=== PATIENT | female | born 1980 | race Caucasian/White ===

== ENCOUNTER → 2020-05-21 | Outpatient (CLI) | payer OTHER ==
[~2020-05-21] MED LIST: CRESTOR40 MG PO; HYDR12.58 PO; LEVO75TA90 PO; METO25TA4 PO
== END ==
LOC: LAB 13:35
PROVIDERS: ATTEND Internal Medicine Gastroenterology
DX: Z01.812 Encounter for preprocedural laboratory examination (principal); Z20.828 Contact with and (suspected) exposure to other viral communicable diseases; Z83.71 Family history of colonic polyps
CPT/HCPCS: U0003-CS

== ENCOUNTER → 2020-05-24 | Day surgery (SDC) | payer OTHER ==
[~2020-05-24] MED LIST changes: +IV RINGERS,LACTATED 1000ML 1,000 ML IV SCH; +LIDOCAINE 2% PF 5 ML VIAL. ONE; +PROPOFOL 10 MG/ML (20ML) VIAL. IV ONE
[2020-05-24 11:27] VITALS: BP 112/74
--- NOTE | 2020-05-29 09:08 | PATHOLOGY ---
[facility] Accession Number: [id number] . 01 Material submitted: . sigmoid colon - SIGMOID POLYP . 01 Clinical history: . SCREENING, FAMILY HX CRC AND POLYPS . 02 Diagnosis: Large bowel, "sigmoid polyp", endoscopic biopsy: - Hyperplastic polyp; negative for dysplasia and malignancy. . (MLK:mml; 05/28/2020) QLM 05/28/2020 1700 Local . 02 Electronically signed: . Juanito Rojas MD, Pathologist NPI- [id number] . 01 Gross description: . Received in formalin labeled "[place], [place], sigmoid polyp" is a leyva-brown soft tissue fragment measuring 0.3 x 0.3 x 0.1 cm. The specimen is submitted entirely in A1. ([facility]; 05/24/2020) SY/[facility] 05/24/2020 1839 Local . 02 Pathologist provided ICD-10: K63.5 . 02 CPT . 722950 Specimen Comment: A courtesy copy of this report has been sent to [phone] Specimen Comment: Report sent to Performed at: [facility] [address], [place], [place] [id number] MD Onel Mendoza MD Phone: [phone] Performed at: [address] [id number] MD Evette Goldsmith MD Phone: [phone]
== END ==
LOC: EDUNIT# 10:30 → ENDOS 10:44
PROVIDERS: ATTEND Internal Medicine Gastroenterology
DX: Z12.11 Encounter for screening for malignant neoplasm of colon (principal); K63.5 Polyp of colon; K64.0 First degree hemorrhoids; I10 Essential (primary) hypertension; E11.9 Type 2 diabetes mellitus without complications; E78.00 Pure hypercholesterolemia, unspecified; F41.9 Anxiety disorder, unspecified; F32.9 Major depressive disorder, single episode, unspecified; I25.2 Old myocardial infarction; Z87.891 Personal history of nicotine dependence; Z79.899 Other long term (current) drug therapy; Z79.84 Long term (current) use of oral hypoglycemic drugs; Z83.71 Family history of colonic polyps; Z80.0 Family history of malignant neoplasm of digestive organs
CPT/HCPCS: 45380; 81025; 88305; J2704

== ENCOUNTER 2021-06-08 23:02 | Inpatient (IN) | payer BC, OTHER ==
[~2021-06-08] VITALS: Ht 167.6 cm; Wt 107.3 kg
[~2021-06-08 23:02] MED LIST changes: -IV RINGERS,LACTATED 1000ML 1,000 ML IV SCH; -LIDOCAINE 2% PF 5 ML VIAL. ONE; -PROPOFOL 10 MG/ML (20ML) VIAL. IV ONE
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
[2021-06-08] MEDS ORDERED: ASPIRIN 325 MG TABLET PO ONE (23:15)
[2021-06-08] MEDS ORDERED: ASPIRIN CHEWABLE 81 MG TABLET. PO ONE (23:15)
[2021-06-08] MEDS ORDERED: IV NORMAL SALINE 1000ML BAG 1,000 ML IV ONE (23:30)
[2021-06-08 23:32] LABS: BASO # 0.1 x10^3/uL (0.0-0.2); BASO % 1 % (0-3); EOS # 0.1 x10^3/uL (0.0-0.7); EOS % 1 % (0-3); HEMATOCRIT 45.4 % (36.0-47.0); HEMOGLOBIN 15.5 g/dL (12.0-15.5); LYMPH # 1.6 x10^3/uL (1.0-4.8); LYMPH % 14 % (24-48); MEAN CORPUSCULAR HEMOGLOBIN 31 pg (25-35); MEAN CORPUSCULAR HGB CONC 34 g/dL (31-37); MEAN CORPUSCULAR VOLUME 90 fL (79-100); MONO # 0.5 x10^3/uL (0.0-1.1); MONO % 4 % (0-9); NEUT # 9.1 x10^3/uL (1.8-7.7); NEUT % 80 % (31-73); PLATELET COUNT 281 x10^3/uL (140-400); RED BLOOD COUNT 5.05 x10^6/uL (3.50-5.40); RED CELL DISTRIBUTION WIDTH 14.3 % (11.5-14.5); WHITE BLOOD COUNT 11.4 x10^3/uL (4.0-11.0)
[2021-06-08 23:42] LABS: BILIRUBIN,URINE NEGATIVE (NEG); CLARITY,URINE CLEAR; COLOR,URINE YELLOW; NITRITE,URINE NEGATIVE (NEG); PH,URINE 6.5 (<5.0-8.0); PROTEIN,URINE NEGATIVE (NEG-TRACE)
[2021-06-08 23:43] LABS: CALCIUM 8.9 mg/dL (8.5-10.1); GFR 60.5; POTASSIUM 4.1 mmol/L (3.5-5.1)
[2021-06-08 23:49] LABS: BACTERIA,URINE FEW /HPF (0-FEW); RBC,URINE RARE /HPF (0-2)
[2021-06-08 23:49] LABS: ALBUMIN 3.9 g/dL (3.4-5.0); ALBUMIN/GLOBULIN RATIO 1.1 (1.0-1.7); MAGNESIUM 1.9 mg/dL (1.8-2.4); TOTAL BILIRUBIN 0.3 mg/dL (0.2-1.0); TOTAL PROTEIN 7.4 g/dL (6.4-8.2)
[2021-06-09] MEDS ORDERED: HEPARIN for IV BOLUS 10,000 UNIT/10 ML VIAL. IV ONE
--- NOTE | 2021-06-09 00:10 | RAD ---
XR CHEST 1V 06/08/2021 11:17 PM INDICATION: Chest pain COMPARISON: None available TECHNIQUE: Portable frontal view of the chest is provided. FINDINGS: The cardiomediastinal silhouette is within normal limits. Mild bibasilar interstitial changes are not ed. There are no significant pleural effusions. There is no pulmonary vascular congestion. No pneumothora x. No suspicious osseous abnormality. IMPRESSION: Moderate bibasilar interstitial changes are present. In the acute setting, this may reflect developin g interstitial pneumonitis infectious/inflammatory etiology versus acute interstitial edema. However, if chronic, findings could reflect chronic interstitial edema or interstitial fibrotic changes. Electronically signed by: Shell Skelton MD (06/09/2021 12:08 AM) BILL
[2021-06-09] MEDS ORDERED: CONTRAST GIVEN. MC PRN (00:15)
[2021-06-09] MEDS ORDERED: IOHEXOL 350 MG/ML 100 ML VIAL. IV ONE (00:15)
--- NOTE | 2021-06-09 00:29 | EKG ---
[facility] [address] [place] [address] Test Date: 2021-06-09 Test Time: 00:15:42 Pat Name: RADHA HERNANDEZ Department: Room: Gender: F [employer] Manager: : 1980 Requested By: DAHIANA DE JESUS Order Number: [id number] Reading MD: Nick Mcdonald Measurements Intervals [place] Rate: 69 P: 43 VT: 138 QRS: -34 QRSD: 98 T: 19 QT: 404 QTc: 434 Interpretive Statements SINUS RHYTHM LEFT ATRIAL ABNORMALITY ABNORMAL LEFT AXIS DEVIATION LEFT ANTERIOR FASCICULAR BLOCK INCOMPLETE RIGHT BUNDLE BRANCH BLOCK ABNORMAL ECG RI6.02 No previous ECG available for comparison Electronically Signed On 06-09-2021 12:40:10 CDT by Nick Mcdonald
--- NOTE | 2021-06-09 00:30 | EKG ---
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
--- NOTE | 2021-06-09 01:07 | RAD ---
PQRS Compliance Statement: One or more of the following individualized dose reduction techniques were utilized for this examinat ion: 1. Automated exposure control 2. Adjustment of the mA and/or kV according to patient size 3. Use of iterative reconstruction technique CTA CHEST_ABDOMEN_AND PELVIS 06/08/2021 12:12 AM Indication: Chest pain, history of dissection COMPARISON: None available. TECHNIQUE: Multiple axial CT images of the chest, abdomen and pelvis were obtained before and after i ntravenous administration of nonionic contrast. Coronal and sagittal reformats provided. Maximum inte nsity projection images are provided. FINDINGS: Thyroid gland is normal in appearance. There are no pathologically enlarged axillary, mediastinal or hilar lymph nodes. Heart size is within normal limits. Thoracic aorta is normal in course and caliber. Ascending thoracic aorta measures 3.6 cm. There is no aortic dissection. Coronary artery vascular calcifications are noted. There is no si gnificant pericardial effusion. Thoracic esophagus is normal in appearance. Anterior chest wall appea rs intact. There is a thin contrast channel identified along the central portion of the intraventricu lar septum. There is a 4 mm solid noncalcified pulmonary nodule in the subpleural lateral left lower lobe (series 5, image 63). There is bibasilar subsegmental atelectasis.. There are no pleural effusions, pulmonar y vascular congestion or pneumothorax. Lungs are clear without focal airspace consolidation. Central airways are clear. Liver, spleen, adrenal glands, pancreas and gallbladder are normal in appearance. The abdominal aorta is normal in course and caliber. There are no pathologically enlarged lymph nodes in the abdomen and pelvis. There is no abdominal free fluid. There is no free intraperitoneal air. No evidence for aort ic dissection. Small and large bowel are normal in caliber. There is no evidence for bowel obstruction. There are no pericolonic inflammatory changes. A normal, nondilated appendix is visualized without adjacent infla mmatory changes. There is a 2 mm nonobstructing calculus in inferior pole of the left kidney. The kid neys enhance symmetrically. There is no suspicious renal mass. There is no hydronephrosis. Subcentime ter cyst identified in the superior pole the right kidney. Urinary bladder is within normal limits gi yesika degree of distention. Uterus and adnexa are normal by CT. No suspicious osseous abnormality. No paraspinal soft tissue mass. IMPRESSION: No evidence for aortic dissection. 4 mm subpleural centimeter noncalcified pulmonary nodule in the lateral left lower lobe. Bandar vidal for incidentally detected pulmonary nodules suggests no routine follow-up for low risk jassi ents and optional CT at 12 months for high risk patients with solid noncalcified pulmonary nodules le ss than 6 mm in size. Bibasilar subsegmental atelectasis. There is a thin contrast channel identified on the interventricular septum (series 5, image 62). This could be volume averaging artifact with adjacent right ventricle. However, correlation with echo cou ld be of benefit for further evaluation as VSD could have similar appearance. Electronically signed by: Shell Skelton MD (06/09/2021 1:05 AM) BILL
[2021-06-09] MEDS: HEPARIN 25,000UTS/250ML PREMIX 250 ML IV PRN ×2 (01:08→15:39)
[2021-06-09] MEDS ORDERED: ONDANSETRON PF 4 MG/2 ML VIAL. IVP PRN (01:30)
[2021-06-09] MEDS ORDERED: fentaNYL PF VIAL 100 MCG/2 ML VIAL IVP PRN (01:30)
[2021-06-09 03:20] VITALS: BP 127/80
[2021-06-09] MEDS ORDERED: FLUO20CA16 PO (04:26)
[2021-06-09] MEDS ORDERED: LORA0.5T96 PO (04:26)
--- NOTE | 2021-06-09 04:27 | NUR ---
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 Valuables were checked and documented. Call light in reach, pt continue on heparin gtt as per order, will cont to monitor pt status and safety. pmrn
[2021-06-09 07:30] VITALS: BP 114/79
--- NOTE | 2021-06-09 08:52 | PDOC1 ---
History and Physical Date of Admission Date of Admission DATE: 06/09/21 TIME: 08:49 Source Source: Chart review, Patient History of Present Illness History of Present Illness MS. Adler is a 41 year old female admit for ER overnight, for acute chest pain, at a haunted house then had chest pain in the car, center of chest and radiated down both arms. She had numbness and tingling in both arms. prior coronary artery dissection 6 months ago had similar pain, she took ibuprofen before coming to the hospital, aspirin given, heparin gtt started for troponi elevation Past Medical History Cardiovascular: CAD, HTN GI: No pertinent hx Heme/Onc: No pertinent hx Hepatobiliary: No pertinent hx Psych: Anxiety, Depression Musculoskeletal: low back pain ENT: No pertinent hx Renal/: No pertinent hx Endocrine: No pertinent hx Past Surgical History Past Surgical History: Other (stents ) Family History Family History: Heart Disease Social History Smoke: Quit ALCOHOL: rare Drugs: None Current Problem List Problem List Problems Medical Problems: (1) NSTEMI (non-ST elevated myocardial infarction) Status: Acute Current Medications Current Medications Current Medications Aspirin (Kayla Aspirin) 325 mg 1X ONCE PO ; Start 06/08/21 at 23:15; Stop 06/08/21 at 23:15; Status DC Aspirin (Aspirin Chewable) 243 mg 1X ONCE PO Last administered on 06/08/21at 23:59; Start 06/08/21 at 23:15; Stop 06/08/21 at 23:16; Status DC Lorazepam (Ativan Inj) 0.5 mg 1X ONCE IVP Last administered on 06/08/21at 23:59; Start 06/08/21 at 23:30; Stop 06/08/21 at 23:32; Status DC Sodium Chloride 1,000 ml @ 1,000 mls/hr 1X ONCE IV Last administered on 06/08/21at 23:59; Start 06/08/21 at 23:30; Stop 06/09/21 at 00:29; Status DC Heparin Sodium (Porcine) (Heparin Sodium) 4,000 unit 1X ONCE IV Last administered on 06/09/21at 01:07; Start 06/09/21 at 00:00; Stop 06/09/21 at 00:01; Status DC Heparin Sodium/ Dextrose 250 ml @ 12.612 mls/ hr CONT PRN IV PER PROTOCOL Last administered on 06/09/21at 01:08; Start 06/09/21 at 00:00 Iohexol (Omnipaque 350 Mg/ml) 100 ml 1X ONCE IV Last administered on 06/09/21at 00:42; Start 06/09/21 at 00:15; Stop 06/09/21 at 00:16; Status DC Info (CONTRAST GIVEN -- Rx MONITORING) 1 each PRN DAILY PRN MC SEE COMMENTS; Start 06/09/21 at 00:15; Stop 06/11/21 at 00:14 Ondansetron HCl (Zofran) 4 mg PRN Q8HRS PRN IVP NAUSEA/VOMITING; Start 06/09/21 at 01:30; Stop 06/10/21 at 01:29 Fentanyl Citrate (Fentanyl 2ml Vial) 50 mcg PRN Q2HR PRN IVP PAIN; Start 06/09/21 at 01:30 Active Scripts Active Reported Prozac (Fluoxetine Hcl) 20 Mg Capsule 20 Mg PO DAILY Ativan (Lorazepam) 0.5 Mg Tablet 0.5 Mg PO PRN PRN Synthroid (Levothyroxine Sodium) 75 Mcg Tablet 75 Mcg PO DAILYAC Crestor (Rosuvastatin Calcium) 40 Mg Tablet 40 Mg PO HS Metoprolol Tartrate 25 Mg Tablet 25 Mg PO BID Hydrochlorothiazide Tablet (Hydrochlorothiazide) 12.5 Mg Tablet 12.5 Mg PO DAILY Allergies Allergies: Coded Allergies: No Known Drug Allergies (Unverified , 05/24/20) ROS General: No: Chills, Night Sweats, Fatigue, Malaise, Appetite, Other PSYCHOLOGICAL ROS: No: Anxiety, Behavioral Disorder, Concentration difficultie, Decreased libido, Depression, Disorientation, Hallucinations, Hostility, Irritablity, Memory difficulties, Mood Swings, Obsessive thoughts, Physical abuse, Sexual abuse, Sleep disturbances, Suicidal ideation, Other Eyes: No Blurry vision, No Decreased vision, No Double vision, No Dry eyes, No Excessive tearing, No Eye Pain, No Itchy Eyes, No Loss of vision, No Photophobia, No Scotomata, No Uses contacts, No Uses glasses, No Other HEENT: No: Heacaches, Visual Changes, Hearing change, Nasal congestion, Nasal discharge, Oral lesions, Sinus pain, Sore Throat, Epistaxis, Sneezing, Snoring, Tinnitus, Vertigo, Vocal changes, Other Respiratory: No: Cough, Hemoptysis, Orthopnea, Pleuritic Pain, Shortness of breath, SOB with excertion, Sputum Changes, Stridor, Tachypnea, Wheezing, Other Cardiovascular: yes Chest Pain Gastrointestinal: No Nausea, No Vomiting, No Abdominal Pain, No Diarrhea, No Constipation, No Melena, No Hematochezia, No Other Genitourinary: No Dysuria, No Frequency, No Incontinence, No Hematuria, No Retention, No Discharge, No Urgency, No Pain, No Flank Pain, No Other, No , No , No , No , No , No , No Musculoskeletal: No Gait Disturbance, No Joint Pain, No Joint Stiffness, No Joint Swelling, No Muscle Pain, No Muscular Weakness, No Pain In:, No Swelling In:, No Other Neurological: No Behavorial Changes, No Bowel/Bladder ControlChng, No Confusion, No Dizziness, No Gait Disturbance, No Headaches, No Impaired Coord/balance, No Memory Loss, No Numbness/Tingling, No Seizures, No Speech Problems, No Tremors, No Visual Changes, No Weakness, No Other Skin: Yes Dry Skin; No Eczema, No Hair Changes, No Lumps, No Mole Changes, No Mottling, No Nail Changes, No Pruritus, No Rash, No Skin Lesion Changes, No Other, No Acne Physical Exam General: Alert, Oriented X3, Cooperative, No acute distress HEENT: Atraumatic, PERRLA, EOMI, Mucous membr. moist/pink Lungs: Clear to auscultation, Normal air movement Heart: S1S2, no murmurs Abdomen: Normal bowel sounds, Soft Rectal Exam: not examined Extremities: No clubbing, No cyanosis, No edema Skin: No rashes, No significant lesion Neuro: Normal speech, Sensation intact Psych/Mental Status: Mental status NL, Mood NL Vitals Vitals Vital Signs Date Time Temp Pulse Resp B/P (MAP) Pulse Ox O2 Delivery O2 Flow Rate FiO2 06/09/21 07:30 97.8 71 16 114/79 (91) 98 Room Air 97.8 Labs Labs Laboratory Tests Test 06/08/21 23:20 06/08/21 23:34 06/08/21 23:36 06/09/21 01:00 White Blood Count 11.4 x10^3/uL (4.0-11.0) Red Blood Count 5.05 x10^6/uL (3.50-5.40) Hemoglobin 15.5 g/dL (12.0-15.5) Hematocrit 45.4 % (36.0-47.0) Mean Corpuscular Volume 90 fL (79-100) Mean Corpuscular Hemoglobin 31 pg (25-35) Mean Corpuscular Hemoglobin Concent 34 g/dL (31-37) Red Cell Distribution Width 14.3 % (11.5-14.5) Platelet Count 281 x10^3/uL (140-400) Neutrophils (%) (Auto) 80 % (31-73) Lymphocytes (%) (Auto) 14 % (24-48) Monocytes (%) (Auto) 4 % (0-9) Eosinophils (%) (Auto) 1 % (0-3) Basophils (%) (Auto) 1 % (0-3) Neutrophils # (Auto) 9.1 x10^3/uL (1.8-7.7) Lymphocytes # (Auto) 1.6 x10^3/uL (1.0-4.8) Monocytes # (Auto) 0.5 x10^3/uL (0.0-1.1) Eosinophils # (Auto) 0.1 x10^3/uL (0.0-0.7) Basophils # (Auto) 0.1 x10^3/uL (0.0-0.2) Prothrombin Time 12.0 SEC (11.7-14.0) Prothromb Time International Ratio 0.9 (0.8-1.1) Activated Partial Thromboplast Time 28 SEC (24-38) Sodium Level 139 mmol/L (136-145) Potassium Level 4.1 mmol/L (3.5-5.1) Chloride Level 101 mmol/L (98-107) Carbon Dioxide Level 27 mmol/L (21-32) Anion Gap 11 (6-14) Blood Urea Nitrogen 11 mg/dL (7-20) Creatinine 1.0 mg/dL (0.6-1.0) Estimated GFR (Cockcroft-Gault) 60.5 BUN/Creatinine Ratio 11 (6-20) Glucose Level 197 mg/dL (70-99) Calcium Level 8.9 mg/dL (8.5-10.1) Magnesium Level 1.9 mg/dL (1.8-2.4) Total Bilirubin 0.3 mg/dL (0.2-1.0) Aspartate Amino Transf (AST/SGOT) 25 U/L (15-37) Alanine Aminotransferase (ALT/SGPT) 46 U/L (14-59) Alkaline Phosphatase 78 U/L (46-116) Troponin I High Sensitivity 118 ng/L (4-50) DK-Tnj-Y-Type Natriuretic Peptide 97 pg/mL (0-124) Total Protein 7.4 g/dL (6.4-8.2) Albumin 3.9 g/dL (3.4-5.0) Albumin/Globulin Ratio 1.1 (1.0-1.7) Lipase 74 U/L (73-393) Urine Collection Type Void Urine Color Yellow Urine Clarity Clear Urine pH 6.5 (<5.0-8.0) Urine Specific [place] 1.025 (1.000-1.030) Urine Protein Negative mg/dL (NEG-TRACE) Urine Glucose (UA) Negative mg/dL (NEG) Urine Ketones (Stick) Trace mg/dL (NEG) Urine Blood Negative (NEG) Urine Nitrite Negative (NEG) Urine Bilirubin Negative (NEG) Urine Urobilinogen Dipstick 1.0 mg/dL (0.2 mg/dL) Urine Leukocyte Esterase Negative (NEG) Urine RBC Rare /HPF (0-2) Urine WBC 1-4 /HPF (0-4) Urine Squamous Epithelial Cells Many /LPF Urine Bacteria Few /HPF (0-FEW) Urine Mucus Marked /LPF Bedside Urine HCG, Qualitative Hcg negative (Negative) SARS-CoV-2 Antigen (Rapid) Negative (NEGATIVE) Test 06/09/21 02:22 Troponin I High Sensitivity 1906 ng/L (4-50) Laboratory Tests Test 06/08/21 23:20 06/08/21 23:34 06/08/21 23:36 06/09/21 01:00 White Blood Count 11.4 x10^3/uL (4.0-11.0) Red Blood Count 5.05 x10^6/uL (3.50-5.40) Hemoglobin 15.5 g/dL (12.0-15.5) Hematocrit 45.4 % (36.0-47.0) Mean Corpuscular Volume 90 fL (79-100) Mean Corpuscular Hemoglobin 31 pg (25-35) Mean Corpuscular Hemoglobin Concent 34 g/dL (31-37) Red Cell Distribution Width 14.3 % (11.5-14.5) Platelet Count 281 x10^3/uL (140-400) Neutrophils (%) (Auto) 80 % (31-73) Lymphocytes (%) (Auto) 14 % (24-48) Monocytes (%) (Auto) 4 % (0-9) Eosinophils (%) (Auto) 1 % (0-3) Basophils (%) (Auto) 1 % (0-3) Neutrophils # (Auto) 9.1 x10^3/uL (1.8-7.7) Lymphocytes # (Auto) 1.6 x10^3/uL (1.0-4.8) Monocytes # (Auto) 0.5 x10^3/uL (0.0-1.1) Eosinophils # (Auto) 0.1 x10^3/uL (0.0-0.7) Basophils # (Auto) 0.1 x10^3/uL (0.0-0.2) Prothrombin Time 12.0 SEC (11.7-14.0) Prothromb Time International Ratio 0.9 (0.8-1.1) Activated Partial Thromboplast Time 28 SEC (24-38) Sodium Level 139 mmol/L (136-145) Potassium Level 4.1 mmol/L (3.5-5.1) Chloride Level 101 mmol/L (98-107) Carbon Dioxide Level 27 mmol/L (21-32) Anion Gap 11 (6-14) Blood Urea Nitrogen 11 mg/dL (7-20) Creatinine 1.0 mg/dL (0.6-1.0) Estimated GFR (Cockcroft-Gault) 60.5 BUN/Creatinine Ratio 11 (6-20) Glucose Level 197 mg/dL (70-99) Calcium Level 8.9 mg/dL (8.5-10.1) Magnesium Level 1.9 mg/dL (1.8-2.4) Total Bilirubin 0.3 mg/dL (0.2-1.0) Aspartate Amino Transf (AST/SGOT) 25 U/L (15-37) Alanine Aminotransferase (ALT/SGPT) 46 U/L (14-59) Alkaline Phosphatase 78 U/L (46-116) Troponin I High Sensitivity 118 ng/L (4-50) UO-Rdp-N-Type Natriuretic Peptide 97 pg/mL (0-124) Total Protein 7.4 g/dL (6.4-8.2) Albumin 3.9 g/dL (3.4-5.0) Albumin/Globulin Ratio 1.1 (1.0-1.7) Lipase 74 U/L (73-393) Urine Collection Type Void Urine Color Yellow Urine Clarity Clear Urine pH 6.5 (<5.0-8.0) Urine Specific [place] 1.025 (1.000-1.030) Urine Protein Negative mg/dL (NEG-TRACE) Urine Glucose (UA) Negative mg/dL (NEG) Urine Ketones (Stick) Trace mg/dL (NEG) Urine Blood Negative (NEG) Urine Nitrite Negative (NEG) Urine Bilirubin Negative (NEG) Urine Urobilinogen Dipstick 1.0 mg/dL (0.2 mg/dL) Urine Leukocyte Esterase Negative (NEG) Urine RBC Rare /HPF (0-2) Urine WBC 1-4 /HPF (0-4) Urine Squamous Epithelial Cells Many /LPF Urine Bacteria Few /HPF (0-FEW) Urine Mucus Marked /LPF Bedside Urine HCG, Qualitative Hcg negative (Negative) SARS-CoV-2 Antigen (Rapid) Negative (NEGATIVE) Test 06/09/21 02:22 Troponin I High Sensitivity 1906 ng/L (4-50) VTE Prophylaxis Ordered VTE Prophylaxis Devices: No VTE Pharmacological Prophylaxi: Yes Assessment/Plan Assessment/Plan chest [place], [place] [address], CAD hx, had taken anticoag meds for a year after stents placed 6 years ago former smoker obese, BMI 38 anxiety and depression, prozac, ativan Justifications for Admission Other Justification MARY ROWLEY MD Jun 09, 2021 08:52
[2021-06-09] MEDS ORDERED: LORazepam 0.5 MG TABLET PO PRN (09:00)
[2021-06-09] MEDS: FLUoxetine HCL 20 MG CAPSULE PO SCH (09:04)
[2021-06-09] MEDS: METOPROLOL TART IMMED RELEASE 25 MG TABLET. PO SCH ×2 (09:04→20:24)
[2021-06-09] MEDS: hydroCHLOROthiazide 12.5 MG CAPSULE PO SCH (09:04)
[2021-06-09] MEDS: LEVOTHYROXINE 75 MCG TABLET PO SCH (09:04)
[2021-06-09 09:08] LABS: CHOLESTEROL/HDL RATIO 7.7
[2021-06-09] MEDS: HEPARIN for IV BOLUS 10,000 UNIT/10 ML VIAL. IV PRN ×2 (09:52→22:55)
[2021-06-09] MEDS: ASPIRIN ENTERIC COATED 325 MG TABLET.DR. PO SCH (10:35)
[2021-06-09 11:12] VITALS: BP 141/95
[2021-06-09 14:32] VITALS: BP 143/84
--- NOTE | 2021-06-09 17:21 | PDOC2 ---
CONSULT Date of Consult Date of Consult DATE: 06/09/21 TIME: 17:15 Reason for Consult Reason for Consult: Chest pain Referring Physician Referring Physician: Dr. Max Identification/Chief Complaint Chief Complaint Chest pain Source Source: Chart review, Patient History of Present Illness Reason for Visit: The patient is a 41-year-old female who was at a haunted house last evening and became afraid and anxious. At that time she developed episodes of chest pressure and pain. The pain persisted and she came to the emergency room. In the emergency room the patient's EKG x2 showed mild nonspecific ST-T wave changes. A chest x-ray showed moderate bibasilar interstitial changes. A CTA of the chest showed no aortic dissection. Initial high-sensitivity troponin was 118. The patient was placed on heparin and monitored overnight. The patient has a history of reported spontaneous coronary dissection at [facility] in [place] 6 years ago for which she did receive stents. She reports taking her medications for approximately a year and then stopping all her medications. Until this episode she has been feeling well. This morning she is totally pain- free and denies any shortness of breath. Past Medical History Cardiovascular: CAD, HTN, Hyperlipidemia GI: No pertinent hx Heme/Onc: No pertinent hx Hepatobiliary: No pertinent hx Psych: Anxiety, Depression Musculoskeletal: low back pain ENT: No pertinent hx Renal/: No pertinent hx Endocrine: No pertinent hx Past Surgical History Past Surgical History: Tubal Ligation, Other (Coronary stents.) Family History Family History: Heart Disease Social History Quit ALCOHOL: rare Drugs: None Current Problem List Problem List Problems Medical Problems: (1) NSTEMI (non-ST elevated myocardial infarction) Status: Acute Current Medications Current Medications Current Medications Aspirin (Kayla Aspirin) 325 mg 1X ONCE PO ; Start 06/08/21 at 23:15; Stop 06/08/21 at 23:15; Status DC Aspirin (Aspirin Chewable) 243 mg 1X ONCE PO Last administered on 06/08/21at 23:59; Start 06/08/21 at 23:15; Stop 06/08/21 at 23:16; Status DC Lorazepam (Ativan Inj) 0.5 mg 1X ONCE IVP Last administered on 06/08/21at 23:59; Start 06/08/21 at 23:30; Stop 06/08/21 at 23:32; Status DC Sodium Chloride 1,000 ml @ 1,000 mls/hr 1X ONCE IV Last administered on 06/08/21at 23:59; Start 06/08/21 at 23:30; Stop 06/09/21 at 00:29; Status DC Heparin Sodium (Porcine) (Heparin Sodium) 4,000 unit 1X ONCE IV Last administered on 06/09/21at 01:07; Start 06/09/21 at 00:00; Stop 06/09/21 at 00:01; Status DC Heparin Sodium/ Dextrose 250 ml @ 12.612 mls/ hr CONT PRN IV PER PROTOCOL Last administered on 06/09/21at 15:39; Start 06/09/21 at 00:00 Iohexol (Omnipaque 350 Mg/ml) 100 ml 1X ONCE IV Last administered on 06/09/21at 00:42; Start 06/09/21 at 00:15; Stop 06/09/21 at 00:16; Status DC Info (CONTRAST GIVEN -- Rx MONITORING) 1 each PRN DAILY PRN MC SEE COMMENTS; Start 06/09/21 at 00:15; Stop 06/11/21 at 00:14 Ondansetron HCl (Zofran) 4 mg PRN Q8HRS PRN IVP NAUSEA/VOMITING; Start 06/09/21 at 01:30; Stop 06/10/21 at 01:29 Fentanyl Citrate (Fentanyl 2ml Vial) 50 mcg PRN Q2HR PRN IVP PAIN; Start 06/09/21 at 01:30 Fluoxetine HCl (PROzac) 20 mg DAILY PO Last administered on 06/09/21at 09:04; Start 06/09/21 at 09:00 Levothyroxine Sodium (Synthroid) 75 mcg DAILYAC PO Last administered on 06/09/21at 09:04; Start 06/09/21 at 09:00 Lorazepam (Ativan) 0.5 mg PRN Q6HRS PRN PO ANXIETY / AGITATION; Start 06/09/21 at 09:00 Metoprolol Tartrate (Lopressor) 25 mg BID PO Last administered on 06/09/21at 09:04; Start 06/09/21 at 09:00 Hydrochlorothiazide (Microzide) 12.5 mg DAILY PO Last administered on 06/09/21at 09:04; Start 06/09/21 at 09:00 Atorvastatin Calcium (Lipitor) 10 mg QHS PO ; Start 06/09/21 at 21:00 Aspirin (Ecotrin) 325 mg DAILYWBKFT PO Last administered on 06/09/21at 10:35; Start 06/09/21 at 10:00 Heparin Sodium (Porcine) (Heparin Sodium) 2,700 unit PRN Q6HRS PRN IV FOR UFH LEVEL LESS THAN 0.2 Last administered on 06/09/21at 09:52; Start 06/09/21 at 09:30 Active Scripts Active Reported Prozac (Fluoxetine Hcl) 20 Mg Capsule 20 Mg PO DAILY Ativan (Lorazepam) 0.5 Mg Tablet 0.5 Mg PO PRN PRN Synthroid (Levothyroxine Sodium) 75 Mcg Tablet 75 Mcg PO DAILYAC Crestor (Rosuvastatin Calcium) 40 Mg Tablet 40 Mg PO HS Metoprolol Tartrate 25 Mg Tablet 25 Mg PO BID Hydrochlorothiazide Tablet (Hydrochlorothiazide) 12.5 Mg Tablet 12.5 Mg PO DAILY Allergies Allergies: Coded Allergies: No Known Drug Allergies (Unverified , 05/24/20) ROS Cardiovascular: yes Chest Pain Physical Exam General: No acute distress Lungs: Clear to auscultation Heart: Regular rate Abdomen: Normal bowel sounds Vitals VITALS Vital Signs Date Time Temp Pulse Resp B/P (MAP) Pulse Ox O2 Delivery O2 Flow Rate FiO2 06/09/21 14:32 60 16 143/84 (103) 97 Room Air 06/09/21 11:12 98.2 98.2 Labs Labs Laboratory Tests Test 06/08/21 23:20 06/08/21 23:34 06/08/21 23:36 06/09/21 01:00 White Blood Count 11.4 x10^3/uL (4.0-11.0) Red Blood Count 5.05 x10^6/uL (3.50-5.40) Hemoglobin 15.5 g/dL (12.0-15.5) Hematocrit 45.4 % (36.0-47.0) Mean Corpuscular Volume 90 fL (79-100) Mean Corpuscular Hemoglobin 31 pg (25-35) Mean Corpuscular Hemoglobin Concent 34 g/dL (31-37) Red Cell Distribution Width 14.3 % (11.5-14.5) Platelet Count 281 x10^3/uL (140-400) Neutrophils (%) (Auto) 80 % (31-73) Lymphocytes (%) (Auto) 14 % (24-48) Monocytes (%) (Auto) 4 % (0-9) Eosinophils (%) (Auto) 1 % (0-3) Basophils (%) (Auto) 1 % (0-3) Neutrophils # (Auto) 9.1 x10^3/uL (1.8-7.7) Lymphocytes # (Auto) 1.6 x10^3/uL (1.0-4.8) Monocytes # (Auto) 0.5 x10^3/uL (0.0-1.1) Eosinophils # (Auto) 0.1 x10^3/uL (0.0-0.7) Basophils # (Auto) 0.1 x10^3/uL (0.0-0.2) Prothrombin Time 12.0 SEC (11.7-14.0) Prothromb Time International Ratio 0.9 (0.8-1.1) Activated Partial Thromboplast Time 28 SEC (24-38) Sodium Level 139 mmol/L (136-145) Potassium Level 4.1 mmol/L (3.5-5.1) Chloride Level 101 mmol/L (98-107) Carbon Dioxide Level 27 mmol/L (21-32) Anion Gap 11 (6-14) Blood Urea Nitrogen 11 mg/dL (7-20) Creatinine 1.0 mg/dL (0.6-1.0) Estimated GFR (Cockcroft-Gault) 60.5 BUN/Creatinine Ratio 11 (6-20) Glucose Level 197 mg/dL (70-99) Calcium Level 8.9 mg/dL (8.5-10.1) Magnesium Level 1.9 mg/dL (1.8-2.4) Total Bilirubin 0.3 mg/dL (0.2-1.0) Aspartate Amino Transf (AST/SGOT) 25 U/L (15-37) Alanine Aminotransferase (ALT/SGPT) 46 U/L (14-59) Alkaline Phosphatase 78 U/L (46-116) Troponin I High Sensitivity 118 ng/L (4-50) YT-Hsq-F-Type Natriuretic Peptide 97 pg/mL (0-124) Total Protein 7.4 g/dL (6.4-8.2) Albumin 3.9 g/dL (3.4-5.0) Albumin/Globulin Ratio 1.1 (1.0-1.7) Lipase 74 U/L (73-393) Urine Collection Type Void Urine Color Yellow Urine Clarity Clear Urine pH 6.5 (<5.0-8.0) Urine Specific [place] 1.025 (1.000-1.030) Urine Protein Negative mg/dL (NEG-TRACE) Urine Glucose (UA) Negative mg/dL (NEG) Urine Ketones (Stick) Trace mg/dL (NEG) Urine Blood Negative (NEG) Urine Nitrite Negative (NEG) Urine Bilirubin Negative (NEG) Urine Urobilinogen Dipstick 1.0 mg/dL (0.2 mg/dL) Urine Leukocyte Esterase Negative (NEG) Urine RBC Rare /HPF (0-2) Urine WBC 1-4 /HPF (0-4) Urine Squamous Epithelial Cells Many /LPF Urine Bacteria Few /HPF (0-FEW) Urine Mucus Marked /LPF Bedside Urine HCG, Qualitative Hcg negative (Negative) SARS-CoV-2 RNA (JIAN) Negative (Negative) SARS-CoV-2 Antigen (Rapid) Negative (NEGATIVE) Test 06/09/21 02:22 06/09/21 08:15 06/09/21 16:40 Troponin I High Sensitivity 1906 ng/L (4-50) 46402 ng/L (4-50) Heparin Anti-Xa Act, Unfractionated 0.13 IU/mL (0.30-0.70) 0.39 IU/mL (0.30-0.70) Triglycerides Level 356 mg/dL (0-150) Cholesterol Level 262 mg/dL (0-200) LDL Cholesterol, Calculated 157 mg/dL (0-100) VLDL Cholesterol, Calculated 71 mg/dL (0-40) Non-HDL Cholesterol Calculated 228 mg/dL (0-129) HDL Cholesterol 34 mg/dL (40-60) Cholesterol/HDL Ratio 7.7 Laboratory Tests Test 06/08/21 23:20 06/08/21 23:34 06/08/21 23:36 06/09/21 01:00 White Blood Count 11.4 x10^3/uL (4.0-11.0) Red Blood Count 5.05 x10^6/uL (3.50-5.40) Hemoglobin 15.5 g/dL (12.0-15.5) Hematocrit 45.4 % (36.0-47.0) Mean Corpuscular Volume 90 fL (79-100) Mean Corpuscular Hemoglobin 31 pg (25-35) Mean Corpuscular Hemoglobin Concent 34 g/dL (31-37) Red Cell Distribution Width 14.3 % (11.5-14.5) Platelet Count 281 x10^3/uL (140-400) Neutrophils (%) (Auto) 80 % (31-73) Lymphocytes (%) (Auto) 14 % (24-48) Monocytes (%) (Auto) 4 % (0-9) Eosinophils (%) (Auto) 1 % (0-3) Basophils (%) (Auto) 1 % (0-3) Neutrophils # (Auto) 9.1 x10^3/uL (1.8-7.7) Lymphocytes # (Auto) 1.6 x10^3/uL (1.0-4.8) Monocytes # (Auto) 0.5 x10^3/uL (0.0-1.1) Eosinophils # (Auto) 0.1 x10^3/uL (0.0-0.7) Basophils # (Auto) 0.1 x10^3/uL (0.0-0.2) Prothrombin Time 12.0 SEC (11.7-14.0) Prothromb Time International Ratio 0.9 (0.8-1.1) Activated Partial Thromboplast Time 28 SEC (24-38) Sodium Level 139 mmol/L (136-145) Potassium Level 4.1 mmol/L (3.5-5.1) Chloride Level 101 mmol/L (98-107) Carbon Dioxide Level 27 mmol/L (21-32) Anion Gap 11 (6-14) Blood Urea Nitrogen 11 mg/dL (7-20) Creatinine 1.0 mg/dL (0.6-1.0) Estimated GFR (Cockcroft-Gault) 60.5 BUN/Creatinine Ratio 11 (6-20) Glucose Level 197 mg/dL (70-99) Calcium Level 8.9 mg/dL (8.5-10.1) Magnesium Level 1.9 mg/dL (1.8-2.4) Total Bilirubin 0.3 mg/dL (0.2-1.0) Aspartate Amino Transf (AST/SGOT) 25 U/L (15-37) Alanine Aminotransferase (ALT/SGPT) 46 U/L (14-59) Alkaline Phosphatase 78 U/L (46-116) Troponin I High Sensitivity 118 ng/L (4-50) HJ-Wpf-W-Type Natriuretic Peptide 97 pg/mL (0-124) Total Protein 7.4 g/dL (6.4-8.2) Albumin 3.9 g/dL (3.4-5.0) Albumin/Globulin Ratio 1.1 (1.0-1.7) Lipase 74 U/L (73-393) Urine Collection Type Void Urine Color Yellow Urine Clarity Clear Urine pH 6.5 (<5.0-8.0) Urine Specific [place] 1.025 (1.000-1.030) Urine Protein Negative mg/dL (NEG-TRACE) Urine Glucose (UA) Negative mg/dL (NEG) Urine Ketones (Stick) Trace mg/dL (NEG) Urine Blood Negative (NEG) Urine Nitrite Negative (NEG) Urine Bilirubin Negative (NEG) Urine Urobilinogen Dipstick 1.0 mg/dL (0.2 mg/dL) Urine Leukocyte Esterase Negative (NEG) Urine RBC Rare /HPF (0-2) Urine WBC 1-4 /HPF (0-4) Urine Squamous Epithelial Cells Many /LPF Urine Bacteria Few /HPF (0-FEW) Urine Mucus Marked /LPF Bedside Urine HCG, Qualitative Hcg negative (Negative) SARS-CoV-2 RNA (JIAN) Negative (Negative) SARS-CoV-2 Antigen (Rapid) Negative (NEGATIVE) Test 06/09/21 02:22 06/09/21 08:15 06/09/21 16:40 Troponin I High Sensitivity 1906 ng/L (4-50) 39737 ng/L (4-50) Heparin Anti-Xa Act, Unfractionated 0.13 IU/mL (0.30-0.70) 0.39 IU/mL (0.30-0.70) Triglycerides Level 356 mg/dL (0-150) Cholesterol Level 262 mg/dL (0-200) LDL Cholesterol, Calculated 157 mg/dL (0-100) VLDL Cholesterol, Calculated 71 mg/dL (0-40) Non-HDL Cholesterol Calculated 228 mg/dL (0-129) HDL Cholesterol 34 mg/dL (40-60) Cholesterol/HDL Ratio 7.7 Images Images Imaging as above. Assessment/Plan Assessment/Plan 1. Chest pain. History of spontaneous coronary dissection as noted above with stent placement 6 years ago. Chest pain was initiated by an episode of anxiety and fear at a haunted house. She has been treated with aspirin and heparin overnight. She is totally pain-free this morning. However her high-sensitivity troponin has significantly elevated. At this time we will continue on heparin. We will attempt to obtain old records and will check an echocardiogram. Will determine if the patient would benefit from a cardiac catheterization based on her clinical course overnight. 2. Hyperlipidemia. Will start statin medication. 3. Patient has discontinued smoking. NARINDER AL MD Jun 09, 2021 17:21
[2021-06-09 19:20] VITALS: BP 118/70
[2021-06-09] MEDS: ATORVASTATIN CALCIUM 40 MG TABLET. PO SCH (20:23)
[2021-06-09] MEDS ORDERED: ATORVASTATIN CALCIUM 10 MG TABLET. PO SCH (21:00)
[2021-06-09 22:38] VITALS: BP 131/80
[2021-06-10] VITALS (7 sets, daily range): BP systolic 109–131; BP diastolic 68–83
[2021-06-10] MEDS: HEPARIN 25,000UTS/250ML PREMIX 250 ML IV PRN (05:26)
[2021-06-10] MEDS: FLUoxetine HCL 20 MG CAPSULE PO SCH (08:14)
[2021-06-10] MEDS: ASPIRIN ENTERIC COATED 325 MG TABLET.DR. PO SCH (08:14)
[2021-06-10] MEDS: LEVOTHYROXINE 75 MCG TABLET PO SCH (08:15)
[2021-06-10] MEDS: METOPROLOL TART IMMED RELEASE 25 MG TABLET. PO SCH ×2 (08:15→20:14)
[2021-06-10] MEDS: hydroCHLOROthiazide 12.5 MG CAPSULE PO SCH (09:00)
[2021-06-10] MEDS ORDERED: IODIXANOL 320 MG/ML 100 ML VIAL. ONE (11:35)
[2021-06-10] MEDS ORDERED: LIDOCAINE 1% PF 2 ML VIAL. ONE (11:35)
[2021-06-10] MEDS ORDERED: HEPARIN for IV BOLUS 10,000 UNIT/10 ML VIAL. ONE (11:49)
[2021-06-10] MEDS ORDERED: VERAPAMIL 5 MG/2 ML VIAL. ONE (11:49)
[2021-06-10] MEDS ORDERED: NITROGLYCERIN 200 MCG/2 ML SYRINGE FOR CATH/VASC LAB. ONE (11:49)
[2021-06-10] MEDS ORDERED: fentaNYL PF VIAL 100 MCG/2 ML VIAL ONE (11:49)
[2021-06-10] MEDS ORDERED: MIDAZOLAM HCL/PF 5 MG/5 ML VIAL. ONE (11:49)
[2021-06-10] MEDS ORDERED: HEPARIN for IV BOLUS 10,000 UNIT/10 ML VIAL. IART ONE (12:30)
[2021-06-10] MEDS ORDERED: LIDOCAINE 1% PF 2 ML VIAL. INJ ONE (12:30)
[2021-06-10] MEDS ORDERED: VERAPAMIL 5 MG/2 ML VIAL. IART ONE (12:30)
[2021-06-10] MEDS ORDERED: fentaNYL PF VIAL 100 MCG/2 ML VIAL IV ONE (12:30)
[2021-06-10] MEDS ORDERED: MIDAZOLAM HCL/PF 5 MG/5 ML VIAL. IV ONE (12:30)
[2021-06-10] MEDS ORDERED: IODIXANOL 320 MG/ML 100 ML VIAL. IART ONE (12:30)
[2021-06-10] MEDS ORDERED: NITROGLYCERIN 200 MCG/2 ML SYRINGE FOR CATH/VASC LAB. IART ONE (12:30)
--- NOTE | 2021-06-10 13:43 | CARD ---
MR#: [id number] Date of Study: 06/10/2021 Ordering Physician: IRIS GONZALES, Referring Physician: IRIS GONZALES, Tech: RT Jasmyne(R) APPROVED REPORT Technologist: RT Jasmyne(R) Nurse: Liss Fitch RN Procedure(s) performed: FL TIME: 3.0 MIN DOSE: 58 GYCM2 CONTRAST: 75 ML MODERATE SEDATION: 37 MIN LHC, Coronary angiography, Left ventriculogram HISTORY : The patient is a 41 year-old female with a history of . INDICATION The indication(s) include : non-STEMI . CSHA Clinical Frailty Scale CS Clinical Frailty Scale: Managing Well Heart Failure Heart Failure: No PROCEDURE NARRATIVE Clinical information: 41-year-old woman with prior history of multiple stents for spontaneous coronary artery dissection in 2014 in [place], [place] presented to the hospital in the setting of atypical chest pain after being scared at a haunted house. Her troponin was elevated to 21 and therefore she was brought to the cath eterization laboratory for further evaluation and treatment. Procedure details: After proper informed consent the right wrist was prepped and draped in usual sterile fashion. Under 1% lidocaine local anesthesia a 6 Tristanian sheath was placed in the right radial artery. There was mo derate spasm of the right radial artery after initial sheath placement which improved after radial co cktail. Next, diagnostic angiography was performed with a 5 Tristanian TIG catheter. A 5 Tristanian pigtail catheter was used to obtain a left ventriculogram, LVEDP and a pullback measurement. At case comple tion all catheters and sheaths were removed and hemostasis was achieved with a Terumo radial band. N o acute complications noted. Findings: Aorta: 120/80 LVEDP 15 mmHg No LV to aortic pullback gradient Left ventriculogram: EF 55%, no wall motion abnormalities No significant aortic or mitral insufficiency Coronary angiography: Left main is a long large caliber vessel with normal angiographic appearance LAD is a moderate to large caliber vessel with a 70% in-stent restenosis involving bifurcation stents extending into the first diagonal. D1 is a moderate caliber vessel with 90% in-stent restenosis and thrombosis. Ramus is a large caliber vessel with mild luminal irregularities. Left circumflex is a small caliber nondominant vessel with mild luminal irregularities RCA is a large caliber dominant vessel with early branching of the PDA and PL with a mid 30% stenosis and distal 50% stenosis. PDA and RPL are small to moderate caliber vessels with mild luminal irregularities. Conclusion 1. Normal left-sided filling pressures 2. Severe one-vessel coronary artery disease involving in-stent restenosis and partial thrombosis of the LAD/D1. Recommendations 1. Continue aspirin and heparin therapy. 2. Given the patient's age we will plan for referral for laser atherectomy and stent optimization ve rsus consideration of bypass for long-term patency. Signed by : Suman Crowley, Electronically Approved : 06/10/2021 13:42:59
--- NOTE | 2021-06-10 14:04 | PDOC ---
[facility] PROGRESS NOTE Date of Service DOS: DATE: 06/10/21 TIME: 14:02 Chief Complaint Chief Complaint chest pain, [place] [address], CAD hx, had taken anticoag meds for a year after stents placed 6 years ago former smoker obese, BMI 38 anxiety and depression, prozac, ativan Continue with heparin drip Continue with aspirin atorvastatin plan for referral for laser atherectomy and stent optimization versus consideration of bypass for long-term patency. History of Present Illness History of Present Illness 41 year old female admit for ER overnight, for acute chest pain, at a haunted house then had chest pain in the car, center of chest and radiated down both arms. She had numbness and tingling in both arms. prior coronary artery dissection 6 months ago had similar pain, she took ibuprofen before coming to the hospital, aspirin given, heparin gtt started for troponi elevation 06/10/2021 No acute events overnight. Patient's troponins exponentially increased greater than 50% initial baseline troponins. Status post cardiac catheterization showing severe restenosis of the stent of the LAD. Continue IV heparin drip. Patient's chart, labs, images were reviewed and discussed with RN Vitals/I&O Vitals/I&O: Vital Signs Date Time Temp Pulse Resp B/P (MAP) Pulse Ox O2 Delivery O2 Flow Rate FiO2 06/10/21 12:55 64 23 98 Nasal Cannula 2.0 06/10/21 12:50 117/77 06/10/21 11:00 98.5 98.5 I & O 06/09/21 06/09/21 06/10/21 15:00 23:00 07:00 Intake Total 485 ml 580 ml 371 ml Balance 485 ml 580 ml 371 ml Physical Exam General: No acute distress Heart: Regular rate Abdomen: Normal bowel sounds Extremities: No clubbing, No cyanosis, No edema Skin: No rashes, No significant lesion Labs Labs: Laboratory Tests Test 06/09/21 16:40 06/09/21 22:08 06/10/21 03:30 06/10/21 10:10 Heparin Anti-Xa Act, Unfractionated 0.39 IU/mL (0.30-0.70) < 0.10 IU/mL (0.30-0.70) 0.52 IU/mL (0.30-0.70) 0.59 IU/mL (0.30-0.70) Assessment and Plan Assessmemt and Plan Problems Medical Problems: (1) NSTEMI (non-ST elevated myocardial infarction) Status: Acute Comment Review of Relevant I have reviewed the following items sophia (where applicable) has been applied. Medications: Current Medications Medications (Trade) Dose Ordered Sig/Paula Route PRN Reason Start Time Stop Time Status Last Admin Dose Admin Atorvastatin Calcium (Lipitor) 40 mg QHS PO 06/09/21 21:00 06/09/21 20:23 Nitroglycerin (Nitroglycerin) 200 mcg 1X ONCE IART 06/10/21 12:30 06/10/21 12:43 DC 06/10/21 12:50 Verapamil HCl (Verapamil) 2.5 mg 1X ONCE IART 06/10/21 12:30 06/10/21 12:43 DC 06/10/21 12:50 Heparin Sodium (Porcine) (Heparin Sodium) 2,500 unit 1X ONCE IART 06/10/21 12:30 06/10/21 12:43 DC 06/10/21 12:52 Heparin Sodium/ Sodium Chloride (HEPARIN for ARTERIAL LINE FLUSH) 1,000 unit 1X ONCE IART 06/10/21 12:30 06/10/21 12:43 DC 06/10/21 12:46 Heparin Sodium/ Sodium Chloride (HEPARIN for ARTERIAL LINE FLUSH) 1,000 unit 1X ONCE IART 06/10/21 12:30 06/10/21 12:43 DC 06/10/21 12:46 Midazolam HCl (Versed) 5 mg 1X ONCE IV 06/10/21 12:30 06/10/21 12:43 DC 06/10/21 12:51 Fentanyl Citrate (Fentanyl 2ml Vial) 100 mcg 1X ONCE IV 06/10/21 12:30 06/10/21 12:43 DC 06/10/21 12:51 Iodixanol (Visipaque 320) 100 ml 1X ONCE IART 06/10/21 12:30 06/10/21 12:43 DC 06/10/21 12:46 Lidocaine HCl (Xylocaine-Mpf 1% 2ml Vial) 2 ml 1X ONCE INJ 06/10/21 12:30 06/10/21 12:43 DC 06/10/21 12:51 Justifications for Admission Other Justification BELGICA OLVERA MD Jun 10, 2021 14:04
--- NOTE | 2021-06-10 15:26 | NUR ---
SS following for discharge planning. SS reviewed pt chart and discussed with pt RN. Pt is from home with spouse and is currently on room air. COVID19 negative. Cardiology following. Pt on Heparin Drip. Self pay. Med Assist following. SS will continue to follow for discharge planning.
--- NOTE | 2021-06-10 16:20 | CARD ---
MR#: [id number] Date of Study: 06/10/2021 Ordering Physician: IRIS GONZALES, Referring Physician: IRIS GONZALES, Tech: Hunter Price [facility] APPROVED REPORT EXAM: Two-dimensional and M-mode echocardiogram with Doppler and color Doppler. Other Information Quality : AverageHR: 53bpm Rhythm : Bradycardia INDICATION Nstemi RISK FACTORS Hypertension Hyperlipidemia 2D DIMENSIONS Left Atrium(2D)4.4 (1.6-4.0cm)IVSd1.2 (0.7-1.1cm) Aortic Root(2D)3.2 (2.0-3.7cm)LVDd4.8 (3.9-5.9cm) LVOT Diameter2.1 (1.8-2.4cm)PWd1.2 (0.7-1.1cm) LVDs2.9 (2.5-4.0cm)FS (%) 40.8 % SV78.4 mlLVEF(%)71.5 (>50%) Aortic Valve AoV Peak Tyler.143.0cm/sAoV VTI31.4cm AO Peak GR.8.2mmHgLVOT Peak Tyler.98.5cm/s LVOT VTI 21.73cmAO Mean GR.5mmHg KIRK (VMAX)1.53jg8WWC (VTI)2.34cm2 Mitral Valve MV E Xfcvebzk35.0cm/sMV DECEL BGGM360bg MV A Dqmsdxjf80.3cm/sMV SDD64ij E/A Ratio1.0MVA (PHT)3.18cm2 TDI E/Lateral E'7.2E/Medial E'8.7 Pulmonary Valve PV Peak Vfyjcwpy724.2cm/sPV Peak Grad.6mmHg Tricuspid Valve TR P. Hrsitrsz711tz/sTR Peak Gr.14mmHg Pulmonary Vein S1 Fochibqr08.8cm/sD2 Jvydhzba04.5cm/s LEFT VENTRICLE The left ventricle is normal size. There is mild concentric left ventricular hypertrophy. The left ve ntricular systolic function is normal. The ejection fraction is estimated at 55-60%. There is normal LV segmental wall motion. No left ventricle thrombus noted on this study. There is no ventricular sep carey defect visualized. There is no left ventricular aneurysm. There is no mass noted in the left vent ricle. RIGHT VENTRICLE The right ventricle is normal size. There is normal right ventricular wall thickness. The right ventr icular systolic function is normal. ATRIA The left atrium is mildly dilated. The right atrium size is normal. The interatrial septum is intact with no evidence for an atrial septal defect or patent foramen ovale as noted on 2-D or Doppler imagi ng. AORTIC VALVE The aortic valve is mildly sclerotic. Doppler and Color Flow revealed no significant aortic regurgita tion. There is no significant aortic valvular stenosis. There is no aortic valvular vegetation. MITRAL VALVE The mitral valve is normal in structure and function. There is no evidence of mitral valve prolapse. There is no mitral valve stenosis. Doppler and Color-flow revealed mild mitral regurgitation. TRICUSPID VALVE The tricuspid valve is normal in structure and function. Doppler and Color Flow revealed trace tricus pid regurgitation. There is no tricuspid valve prolapse or vegetation. There is no tricuspid valve st enosis. PULMONIC VALVE The pulmonary valve is normal in structure and function. Doppler and Color Flow revealed no pulmonic valvular regurgitation. There is no pulmonic valvular stenosis. GREAT VESSELS The aortic root is normal in size. The ascending aorta is normal in size. The pulmonary artery is nor mal. The IVC is normal in size and collapses >50% with inspiration. PERICARDIAL EFFUSION There is no pleural effusion. There is no evidence of significant pericardial effusion. Critical Notification Critical Value: No <Conclusion> The left ventricular systolic function is normal. The ejection fraction is estimated at 55-60%. There is normal LV segmental wall motion. Mild mitral regurgitation. Trace tricuspid regurgitation. There is no evidence of significant pericardial effusion. Signed by : Nick Mcdonald, Electronically Approved : 06/10/2021 16:19:53
[2021-06-10] MEDS: ATORVASTATIN CALCIUM 40 MG TABLET. PO SCH (20:14)
[2021-06-11 03:18] VITALS: BP 110/65
[2021-06-11 07:00] VITALS: BP 133/76
[2021-06-11] MEDS: LEVOTHYROXINE 75 MCG TABLET PO SCH (07:39)
[2021-06-11] MEDS ORDERED: PRASUGREL 10 MG TABLET. PO ONE (09:00)
[2021-06-11] MEDS: hydroCHLOROthiazide 12.5 MG CAPSULE PO SCH (09:00)
--- NOTE | 2021-06-11 09:53 | NUR ---
SS following up with discharge planning. SS reviewed pt chart and discussed with pt RN. Pt is currently on room air. COVID19 negative. Heparin drip. Cardiology requested transfer to [facility] for High Risk PCI. Transfer request made to [facility], ; fax [phone]. Marco A from transfer center contacted SS and discussed. Clinical faxed to [facility] as requested. Images clouded to [facility]. Accepting physician, Dr. Raquel Thomson. SS currently awaiting tele bed assignment at this time. Packet, transfer form, and ambulance form on the chart. SS will continue to follow for discharge planning. Addendum: 06/11/21 at 1433 by MADDY HAM SS SS received phone contact from [facility]. Bed#2334. Report# [phone]. Felecia HANKS. Pt will discharge today and go to [facility] via [facility] ambulance. Pt's RN notified.
[2021-06-11] MEDS: ASPIRIN ENTERIC COATED 325 MG TABLET.DR. PO SCH (10:10)
[2021-06-11] MEDS: METOPROLOL TART IMMED RELEASE 25 MG TABLET. PO SCH (10:10)
[2021-06-11] MEDS: FLUoxetine HCL 20 MG CAPSULE PO SCH (10:19)
--- NOTE | 2021-06-11 10:34 | PDOC ---
SHERIF LOZANO [employer] DEPUTY DIRECTOR 06/11/21 1034: CARDIO Progress Notes Date and Time Date of Service 06/11/2021 Time of Evaluation 1020 Subjective Subjective: No Chest Pain, No shortness of breath, No Palpitations Vitals Vitals Vital Signs Date Time Temp Pulse Resp B/P (MAP) Pulse Ox O2 Delivery O2 Flow Rate FiO2 06/11/21 10:10 67 133/76 06/11/21 07:00 98.6 18 96 Room Air 98.6 06/10/21 12:55 2.0 Weight Weight [ ] Input and Output Intake and Output Intake and Output 06/11/21 06:59 Intake Total 700 ml Balance 700 ml Intake Oral 700 ml # Voids 3 Physical Exam HEENT: Neck Supple W Full Motion Chest: Symmetric LUNGS: Clear to Auscultation Heart: S1S2, RRR (SR), no murmurs Abdomen: Soft N/T Extremities: No Calf Tenderness Neurology: alert, oriented, follow commands Assessment Assessment 1. NSTEMI: LHC revealed severe one-vessel coronary artery disease involving in- stent restenosis and partial thrombosis of the LAD/D1. 2. HLP 3. Hx of SCAD 4. HTN: controlled 5. Obesity Recommendations 1. Complex PCI vs CABG. Will transfer to [facility] 2. Continue hepatirn drip 3. Secondary prevention measures Justicifation of Admission Dx: Justifications for Admission: Justification of Admission Dx: Yes NARINDER AL MD 06/11/21 1723: CARDIO Progress Notes Assessment Assessment Patient seen and examined She is chest pain-free. I agree with our nurse practitioners assessment and plan. NSTEMI: LHC with severe one-vessel coronary artery disease involving in-stent restenosis and partial thrombosis of the LAD/D1. HLP. Continue medical treatment. Hx of SCAD HTN: controlled Complex PCI vs CABG. The patient is being transferred to [facility]. SHERIF LOZANO APRN Jun 11, 2021 10:34 NARINDER AL MD Jun 11, 2021 17:23
[2021-06-11 10:50] VITALS: BP 129/75
--- NOTE | 2021-06-11 14:01 | SNU/HH DC ---
DISCHARGE ORDERS DISCHARGE INFORMATION: DISCHARGE DATE: Jun 11, 2021 FINAL DIAGNOSIS Problems Medical Problems: (1) NSTEMI (non-ST elevated myocardial infarction) Status: Acute CONDITION ON DISCHARGE: Guarded CODE STATUS: Code Status: Full POST DISCHARGE ORDERS: ACTIVITY ORDERS: Resume previous activity TREATMENT/EQUIPMENT ORDERS: Physical Therapy For: Evalulation/Treatment Occupational Therapy For: Evaluation/Treatment DISCHARGE MEDICATIONS: Home Meds Reported Medications Fluoxetine Hcl (PROZAC) 20 Mg Capsule, 20 MG PO DAILY for DEPRESSION, CAP 06/09/21 Lorazepam (ATIVAN) 0.5 Mg Tablet, 0.5 MG PO PRN PRN for ANXIETY / AGITATION, TAB 06/09/21 Levothyroxine Sodium (SYNTHROID) 75 Mcg Tablet, 75 MCG PO DAILYAC for THYROID SUPPLEMENT, #30 TAB 0 Refills 05/24/20 Rosuvastatin Calcium (CRESTOR) 40 Mg Tablet, 40 MG PO HS for FOR CHOLESTEROL, #30 TAB 0 Refills 05/24/20 Metoprolol Tartrate (METOPROLOL TARTRATE) 25 Mg Tablet, 25 MG PO BID for FOR HYPERTENSION, #60 TAB 0 Refills 05/24/20 Hydrochlorothiazide (HYDROCHLOROTHIAZIDE TABLET) 12.5 Mg Tablet, 12.5 MG PO DAILY for DIURETIC, TAB 0 Refills 05/24/20 BELGICA OLVERA MD Jun 11, 2021 14:01
--- NOTE | 2021-06-11 14:06 | PDOC3 ---
[facility]-Discharge Summary Date of Admission: Date of Admission: Jun 09, 2021 Date of Discharge: Date of Discharge: Jun 11, 2021 Discharge Diagnosis: Discharge Diagnosis: chest pain[place] [id number], CAD hx, had taken anticoag meds for a year after stents placed 6 years ago former smoker obese, BMI 38 anxiety and depression, prozac, ativan Continue with heparin drip Continue with aspirin atorvastatin plan for referral for laser atherectomy and stent optimization versus consideration of bypass for long-term patency. Consults: Consults: Cardiology Recommendations 1. Complex PCI vs CABG. Will transfer to [facility] 2. Continue hepatirn drip 3. Secondary prevention measures Hospital Course: Hospital Course: 41 year old female admit for ER overnight, for acute chest pain, at a haunted house then had chest pain in the car, center of chest and radiated down both arms. She had numbness and tingling in both arms. prior coronary artery dissection 6 months ago had similar pain, she took ibuprofen before coming to the hospital, aspirin given, heparin gtt started for troponi elevation 06/10/2021 No acute events overnight. Patient's troponins exponentially increased greater than 50% initial baseline troponins. Status post cardiac catheterization showing severe restenosis of the stent of the LAD. Continue IV heparin drip. Patient's chart, labs, images were reviewed and discussed with RN On day of discharge, cardiology requested transfer to [facility] for high risk PCI. Accepting physician Dr. Thomson. Rest of hospital course was uneventful Disposition: Disposition/Orders: D/C to Another Facility Activity: Activity: Resume previous activity Diet: Diet: Cardiac Medications: Home Meds Reported Medications Fluoxetine Hcl (PROZAC) 20 Mg Capsule, 20 MG PO DAILY for DEPRESSION, CAP 06/09/21 Lorazepam (ATIVAN) 0.5 Mg Tablet, 0.5 MG PO PRN PRN for ANXIETY / AGITATION, TAB 06/09/21 Levothyroxine Sodium (SYNTHROID) 75 Mcg Tablet, 75 MCG PO DAILYAC for THYROID SUPPLEMENT, #30 TAB 0 Refills 05/24/20 Rosuvastatin Calcium (CRESTOR) 40 Mg Tablet, 40 MG PO HS for FOR CHOLESTEROL, #30 TAB 0 Refills 05/24/20 Metoprolol Tartrate (METOPROLOL TARTRATE) 25 Mg Tablet, 25 MG PO BID for FOR HYPERTENSION, #60 TAB 0 Refills 05/24/20 Hydrochlorothiazide (HYDROCHLOROTHIAZIDE TABLET) 12.5 Mg Tablet, 12.5 MG PO DAILY for DIURETIC, TAB 0 Refills 05/24/20 Scheduled Fluoxetine Hcl (Prozac), 20 MG PO DAILY, (Reported) Hydrochlorothiazide (Hydrochlorothiazide Tablet), 12.5 MG PO DAILY, (Reported) Levothyroxine Sodium (Synthroid), 75 MCG PO DAILYAC, (Reported) Metoprolol Tartrate (Metoprolol Tartrate), 25 MG PO BID, (Reported) Rosuvastatin Calcium (Crestor), 40 MG PO HS, (Reported) Scheduled PRN Lorazepam (Ativan), 0.5 MG PO PRN PRN for ANXIETY / AGITATION, (Reported) Total Time: Total Time: Total time spent was 31 minutes in preparing scripts, discharge planning with SWI and RN and preparing this discharge summary Patient seen and examined on day of discharge. No acute abnormal findings. Justicifation of Admission Dx: Justifications for Admission: Justification of Admission Dx: Yes BELGICA OLVERA MD Jun 11, 2021 14:06
--- NOTE | 2021-06-11 14:57 | NUR ---
Patient transferred to [facility] for further medical intervention via EMS. Patient on heparin gtt at 18 mL/hr. Report called to Summer HANKS at [phone]. All belongings taken with patient to [facility]
== END 2021-06-11 14:40 | disposition short-term general hospital (02) | DRG 282 ==
LOC: ER 23:02 → 6 SOUTH 06-09 01:19
PROVIDERS: ADMIT Family Medicine; ATTEND Family Medicine
PROC: B2111ZZ Fluoroscopy of Multiple Coronary Arteries using Low Osmolar Contrast (ICD-10-PCS; principal; 2021-06-10)
PROC: B2151ZZ Fluoroscopy of Left Heart using Low Osmolar Contrast (ICD-10-PCS; 2021-06-10)
PROC: 4A023N7 Measurement of Cardiac Sampling and Pressure, Left Heart, Percutaneous Approach (ICD-10-PCS; 2021-06-10)
DX: T82.855A Stenosis of coronary artery stent, initial encounter (principal); I21.4 Non-ST elevation (NSTEMI) myocardial infarction; E66.9 Obesity, unspecified; Z68.38 Body mass index [BMI] 38.0-38.9, adult; E78.5 Hyperlipidemia, unspecified; F32.A Depression, unspecified; F41.9 Anxiety disorder, unspecified; I10 Essential (primary) hypertension; I25.10 Atherosclerotic heart disease of native coronary artery without angina pectoris; Z87.891 Personal history of nicotine dependence; Z95.5 Presence of coronary angioplasty implant and graft; R91.1 Solitary pulmonary nodule; Z98.51 Tubal ligation status; M54.50 Low back pain, unspecified; Z20.822 Contact with and (suspected) exposure to COVID-19; Y83.8 Other surgical procedures as the cause of abnormal reaction of the patient, or of later complication, without mention of misadventure at the time of the procedure; Y92.89 Other specified places as the place of occurrence of the external cause
CPT/HCPCS: 36415; 71045; 71275; 74174; 80053; 80061; 81001; 81025; 83690; 83735; 83880; 84484; 85025; 85520; 85610; 85730; 87426; 93005; 93306; 93458; 96361; 96374; 96375; 99152; 99153; C1894; J1644; J2060; J2250; J3010; J3490; J7030; Q9967; U0003; U0005; 99291-25; G0378